=== PATIENT | male | born 1965 | race Caucasian/White ===

== ENCOUNTER → 2023-06-08 14:03 | Outpatient (CLI) | payer MEDICARE, SELFPAY ==
--- NOTE | ~2023-06-08 | XR_ITS ---
XR chest 2V DATE: 06/08/2023 14:42 INDICATION: Smoker. Hypertension. TECHNIQUE: 2 views COMPARISON: 08/31/2019 CT chest FINDINGS: Status post sternotomy and coronary artery bypass graft surgery. Status post right thoracotomy. Approximately 1 cm nodular density overlying the lateral right lower lung, corresponding to a similar sized nodule demonstrated on 08/31/2019 CT examination with lack of significant change in over 3 1/2 years is most suggestive of benign process. Mild discoid scarring or atelectasis at the left lung base. The lungs otherwise appear clear. No pleural effusion or pulmonary vascular congestion or pneumothorax. IMPRESSION: Stable approximately 1 cm right lower lobe pulmonary nodule No active cardiac pulmonary disease Status post sternotomy and coronary bypass graft surgery Status post right thoracotomy Reviewed, dictated and finalized at location B.
--- NOTE | ~2023-06-08 | XR_ITS ---
XR shoulder RT min 2V DATE: 06/08/2023 14:43 INDICATION: Right shoulder pain TECHNIQUE: 4 views COMPARISON: None FINDINGS: There is degenerative spurring and a prominent ossicle along the superior aspect of the rig ht acromioclavicular joint. No fracture or dislocation, periosteal reaction or bone destruction or abnormal soft tissue calcifica tion of the right shoulder is detected. Osteopenia. Status post sternotomy and coronary artery bypass graft surgery. IMPRESSION: Degenerative change at right acromioclavicular joint Reviewed, dictated and finalized at location B.
--- NOTE | ~2023-06-08 | XR_ITS ---
XR wrist RT min 3V DATE: 06/08/2023 14:44 INDICATION: Pain and swelling of right wrist TECHNIQUE: 4 views COMPARISON: None FINDINGS: Severe narrowing at the radial navicular joint. Is widening of the scapholunate joint. There is very prominent cystic change at the proximal half of the capitate bone. There is prominent joint space narrowing between the lunate and capitate bone. Moderate osteoarthritic change at the first carpometacarpal joint. No recent fracture or dislocation, periosteal reaction or bone destruction is detected. Prominent arterial calcification. IMPRESSION: Polyarticular osteoarthritis Prominent cystic change of the capitate bone Reviewed, dictated and finalized at location B.
--- NOTE | ~2023-06-08 | XR_ITS ---
XR hand LT min 3V DATE: 06/08/2023 14:44 INDICATION: Pain and swelling TECHNIQUE: 3 views COMPARISON: 06/08/2022 left wrist FINDINGS: Postoperative changes of the left wrist are again noted and described in the 06/06/2023 lef t wrist radiographic examination report. No recent fracture or dislocation, periosteal reaction or bone destruction is evident. There is osteoarthritic change at the radiocarpal joint and first carpometacarpal joint. Prominent arterial calcifications. Chondrocalcinosis of the triangular cartilage. IMPRESSION: Postoperative change of the wrist Polyarticular osteoarthritis Reviewed, dictated and finalized at location B.
--- NOTE | ~2023-06-08 | XR_ITS ---
EXAMINATION: XR lumbar spine 2-3V DATE: 06/08/2023 14:43 INDICATION: Low back pain. TECHNIQUE: 3 views of lumbar spine were obtained. COMPARISON: Chest CT 08/31/2019 FINDINGS: There are hypoplastic ribs at L1. There is 9 degrees levocurvature of lumbar spine. There i s 3 mm retrolisthesis of L1 on L2 and 3 mm anterolisthesis of L5 on S1. Vertebral body heights are no rmal. There is moderately decreased disc height at L1-L2, mildly decreased disc height at L3-L4, blossom rely decreased disc height at L4-L5, and mildly decreased disc height at L5-S1. There is multilevel f acet joint osteoarthritis, severe in lower lumbar spine. IMPRESSION: 1. Severe lumbar spondylosis. Reviewed, dictated and finalized at location E.
--- NOTE | ~2023-06-08 | XR_ITS ---
EXAMINATION: XR hand RT min 3V DATE: 06/08/2023 14:45 INDICATION: Right hand pain and swelling. TECHNIQUE: 3 views of right hand were obtained. COMPARISON: None. FINDINGS: Scapholunate dissociation is noted. There is an old healed fracture of diaphysis of fifth m etacarpal. There is severe osteoarthritis of lunate-capitate joint with large subchondral cyst. There is severe osteoarthritis of radioscaphoid joint. There is mild osteoarthritis of first carpometacarp al joint, triscaphe joint, second and third metacarpophalangeal joints, and most of the interphalange al joints. IMPRESSION: 1. 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 2. Polyarticular osteoarthritis. Reviewed, dictated and finalized at location E.
--- NOTE | ~2023-06-08 | XR_ITS ---
XR wrist LT min 3V DATE: 06/08/2023 14:43 INDICATION: Pain and swelling of left wrist TECHNIQUE: 4 views COMPARISON: None FINDINGS: There is postoperative change of the wrist with plate and screws along the dorsal aspect of the wrist bridging the triquetrum and proximal capitate bone and a screw extending from the radiocar pal joint into the capitate bone. There is resection of the navicular bone with some probable degener ative ossicles at the navicular bed. Mild there is patchy sclerosis and cystic change of the lunate b one and to a lesser extent the proximal capitate bone. There is some lucency around the screw extending from the radiocarpal joint into the proximal capitat e which may indicate loosening or less likely infection. There is osteoarthritic change at the first carpometacarpal joint. Prominent arterial calcification. IMPRESSION: Postoperative change of the left wrist including resection of the navicular bone, fusion of the triquetrum-capitate Possible loosening or less likely infection at a screw extending from the radiocarpal joint into the capitate bone No recent fracture or dislocation Reviewed, dictated and finalized at location B. IMPRESSION: Postoperative change of the left wrist including resection of the n avicular bone, fusion of the triquetrum-capitate Possible loosening or less likely infection at a screw extending from the radio carpal joint into the capitate bone No recent fracture or dislocation
== END ==
PROVIDERS: PCP Emergency Medicine; Visit Provider Emergency Medicine
DX: Z12.2 Encounter for screening for malignant neoplasm of respiratory organs (principal); Z87.891 Personal history of nicotine dependence; M79.642 Pain in left hand; M79.641 Pain in right hand; M43.06 Spondylolysis, lumbar region; R91.1 Solitary pulmonary nodule; Z95.1 Presence of aortocoronary bypass graft; Z98.890 Other specified postprocedural states; M19.042 Primary osteoarthritis, left hand; M19.041 Primary osteoarthritis, right hand
CPT/HCPCS: 71046; 72100; 73030; 73110; 73130

== ENCOUNTER 2023-06-10 10:03 | Inpatient (IN) | payer MEDICARE, SELFPAY ==
[2023-06-10] VITALS (20 sets, daily range): BP systolic 121–190; BP diastolic 71–99; PULSE 56–96; RESP 10–20; TEMP 36.1–36.5; O2SAT 93–100; BMI 24.5
--- NOTE | ~2023-06-10 | CT_ITS ---
EXAMINATION: CTA chest abdomen pelvis DATE: 06/10/2023 12:24 INDICATION: Right-sided chest pain and upper abdominal pain radiating to the back TECHNIQUE: Computed tomographic angiography (CTA) of the chest, abdomen, and pelvis was performed wit hout and with 100 mL Omnipaque-350 intravenous contrast. Volume-rendered 3D-reconstructions of the ao rta and large arteries were constructed by the technologist on a separate workstation. Automated expo sure control and iterative reconstruction technique were employed. The dose-length product was 715.4 mGy-cm. COMPARISON: None FINDINGS: Chest: 1.1 cm and 6 mm right lower lobe nodules with smooth margins which are unchanged since CT dated 2019 consistent with benign etiology such as old granulomatous disease or hamartoma. Additional uncha nged 3 mm pleural-based nodule at the lateral left lower lobe. Also unchanged is a small region of di scoid atelectasis/scarring at the posterior inferior lingula. There is persistent bronchial wall thic kening and mucous plugging of multiple bronchi in the bilateral lower lobes. No pneumonia, pulmonary edema, pleural effusion or pneumothorax. There are several small intrafissural lymph nodes along the right major and minor fissures. Arch size is normal. Atherosclerotic coronary artery ossifications an d change of prior median sternotomy and coronary artery bypass grafting. No pericardial effusion. Mil dly aneurysmal ascending thoracic aorta measuring up to 4.1 x 4.2 cm maximal transaxial dimensions. T he more distal thoracic aorta is normal in caliber. No aortic dissection. No pathologically enlarged thoracic lymphadenopathy. Mild thoracic spondylosis with chronic mild anterior wedging at T7-T9. Like ly thoracotomy defect involving the right seventh rib. Abdomen and pelvis: Liver, gallbladder, spleen and pancreas are normal. Unchanged mild nodular thickening of the bilatera l adrenal glands likely representing small adenomas. Again seen is bilateral hydroureteronephrosis, m ild to moderate on the right and severe on the left likely related to chronic outlet obstruction from the enlarged prostate. This also likely accounts for the diffuse mild wall thickening of the bladder with couple small diverticula at the dome of the bladder. There a few small regions of cortical scar ring at both kidneys likely sequela of prior infections or infarction. Bowels including the appendix are normal. There is mild scattered atherosclerotic plaque without hemodynamic significant stenosis a long the normal caliber abdominal aorta and extending into the bilateral iliac arteries. No aortic di ssection. No free intraperitoneal gas or fluid. No pathologically enlarged abdominal or pelvic lympha denopathy. Moderate to severe lumbar spondylosis. IMPRESSION: 1. Mildly aneurysmal ascending thoracic aorta measuring up to 4.2 cm maximal diameter. Remainder of t he aorta is normal in caliber and there is no aortic dissection. 2. Chronic bronchial wall thickening and scattered mucous plugging in the bilateral lower lobes sugge sting bronchitis without evident pneumonia. 3. Cardiomegaly with coronary artery disease and prior coronary artery bypass grafting. 4. Chronic bilateral hydroureteronephrosis which along with diffuse wall thickening of the distended bladder likely reflect changes of chronic outlet obstruction from the enlarged prostate. Reviewed, dictated and finalized at location A. IMPRESSION: 1. Mildly aneurysmal ascending thoracic aorta measuring up to 4.2 cm maximal di ameter. Remainder of the aorta is normal in caliber and there is no aortic diss ection. 2. Chronic bronchial wall thickening and scattered mucous plugging in the bilat eral lower lobes suggesting bronchitis without evident pneumonia. 3. Cardiomegaly with coronary artery disea
--- NOTE | ~2023-06-10 | XR_ITS ---
XR abdomen/kub 1V 06/11/2023 11:38 INDICATION: Abdomen pain TECHNIQUE: KUB COMPARISON: None FINDINGS: Bowel gas pattern is normal. Moderate colonic fecal loading. There is no evidence of free a ir, mass, organomegaly, ascites or obstruction. No abnormal calculi are seen. The bones appear inta ct. Moderate lumbar spondylosis with levoscoliosis. IMPRESSION: 1: No acute abdominal abnormality identified. Reviewed, dictated and finalized at location A.
[2023-06-10 10:51] LABS: Basophils Absolute Auto 0.1 K/mm3 (0.0-0.1); Basophils Percent Auto 0.7 % (0.2-1.2); Eosinophils Absolute Auto 0.3 K/mm3 (0-0.3); Eosinophils Percent Auto 3.1 % (0-4.4); Hematocrit 45.3 % (42.0-52.0); Hemoglobin 14.7 g/dL (14.0-18.0); Immature Granulocyte Absolute 0.03 K/mm3 (0.00-0.031); Immature Granulocyte Percent A 0.3 % (0-0.5); Lymphocytes Absolute Auto 1.62 K/mm3 (0.9-3.2); Mean Corpuscular HGB Conc 32.5 g/dl (32-36); Mean Corpuscular Hemoglobin 28.8 pg (26-34); Mean Corpuscular Volume 88.6 fl (80-100); Mean Platelet Volume 11.1 fl (7.4-10.4); Monocytes Absolute Auto 0.9 K/mm3 (0.1-0.6); Neutrophils Absolute Auto 6.1 K/mm3 (1.3-6.7); Neutrophils Percent Auto 67.9 % (45.5-73.1); Platelet Count Result 271 k/mm3 (150-375); Red Blood Count 5.11 M/mm3 (4.6-6.20)
[2023-06-10 10:57] LABS: Appearance Urine Cloudy (Clear); Bacteria Urine 4+ /hpf; Bilirubin Urine Negative (Negative); Blood Urine 1+ (Negative); Color Urine Yellow (Yellow); Glucose Urine UA 2+ mg/dL (Negative); Ketones Urine Negative (Negative); Leukocyte Esterase Ur 2+ LEU/UL (Negative); Nitrate Urine Negative (Negative); Non Pathogenic Casts 0-2; Protein Urine 1+ mg/dL (Negative); Specific Grav Ur 1.024 (1.001-1.035); Squamous Epithelial Cell Urine None seen /hpf (Few); Urobilinogen Urine 0.2 mg/dL (<2.0); WBC Urine >100 /hpf; pH Urine 8.5 (5.0-9.0)
[2023-06-10 10:59] LABS: Alanine Aminotransferase 19 U/L (6-50); Albumin Level 4.4 g/dL (3.5-5.1); Alkaline Phosphatase 99 U/L (38-126); Anion Gap 4 mmol/L (8-16); Aspartate Amino Transferase 26 U/L (17-59); Bilirubin,Total 0.5 mg/dL (0.2-1.3); Blood Urea Nitrogen 27 mg/dL (9-20); Calcium 9.2 mg/dL (8.4-10.2); Carbon Dioxide 31 mmol/L (22-30); Chloride 101 mmol/L (98-107); Estimated CRCL calculation 68 ml/min; Estimated Glomerular Filt Rate > 60; Glucose 303 mg/dL (65-110); Lipase 20 U/L (23-300); Potassium 4.5 mmol/L (3.4-5.0); Sodium 136 mmol/L (137-145)
[2023-06-10 10:59] LABS: Lactic Acid Reflex 1.1 mmol/L (0.7-2.0)
[2023-06-10 11:03] LABS: Add Urine Microscopic? YES
[2023-06-10 11:06] LABS: INR 0.9; Prothrombin Time 11.9 Seconds (11.1-14.7)
[2023-06-10 11:07] LABS: Partial Thromboplastin Time 28.9 SECONDS (22.3-36.8)
--- NOTE | 2023-06-10 11:59 | ECG_ITS ---
Measurements Intervals [place] Rate: 60 P: 17 SC: 207 QRS: -47 QRSD: 122 T: -50 QT: 402 QTc: 402 Interpretive Statements SINUS RHYTHM INFERIOR MYOCARDIAL INFARCTION [40+ ms Q WAVE AND/OR ST/T ABNORMALITY IN II/aVF], OF INDETERMINATE AGE NO PREVIOUS ECG AVAILABLE FOR COMPARISON Electronically Signed On 06-10-2023 13:36:48 CDT by Saw Bhakta MD
--- NOTE | 2023-06-10 12:00 | ED.ABDPAIN ---
HPI - Abdominal Pain General Chief Complaint: Abdominal Pain Stated Complaint: abdominal pain Time Seen by Provider: 06/10/23 10:27 History of Present Illness HPI narrative: 57-year-old male presented to the emergency department for evaluation of intense abdominal pain for the last 3 to 7 days. Patient states he had this pain approximately a year ago and was supposed to have surgery for an unknown reason but states surgery never occurred. Patient is unsure of what the etiology of that pain was. Patient describes nausea without vomiting. Patient reports decreased bowel movements but did have a bowel movement today. Patient has have history of diabetes, high cholesterol and hypertension. Patient denies any prior diagnosis of aneurysm or aortic dissection. Related Data Allergies Allergy/AdvReac Type Severity Reaction Status Date / Time No Known Allergies Allergy Verified 06/10/23 10:46 Review of Systems Review of Systems: All systems reviewed & are unremarkable except as noted in HPI and below PMFSH Family History Family History Grandparent Family history of osteoporosis Diabetes mellitus Mother Family history of osteoporosis Family history of mental disorder Family history of arthritis Family history of malignant neoplasm Social History Social History Smoking packs per day: 1 Smoking cigarettes per day: 20.0 Smoking status: Former smoker Tobacco type: cigarettes Alcohol intake: former Substance use: former Substance use type: marijuana Last use: Lack of Transportation: No Lack of Food: Never True Current Housing: I Have Housing Concerned About Future Housing: No Difficulty Paying Gas/Electric Bills: No Difficulty Paying for Meds: No Currently Unemployed: No Education: High School Diploma/GED Difficulty w/ Childcare or Family Care: No Spiritual care concerns: No Exam Narrative: APPEARANCE: Well appearing, no pain, no distress, well-nourished. HEAD: normocephalic, atraumatic. EYES: PERRLA/EOMI, conjunctivae clear. NOSE: Normal no drainage NECK: Supple. No adenopathy, no masses. RESPIRATORY: Airway patent, respirations nonlabored. Clear to auscultation bilaterally, no rales, rhonchi, wheezing. CARDIOVASCULAR: Regular rate and rhythm without murmurs rubs or gallops. ABDOMINAL: Abdomen is very tender to palpation on initial exam MUSCULOSKELETAL: Moves all extremities. Strength/ROM intact, No edema, No calf tenderness. NEURO: Alert. Cranial nerves II through XII intact. SKIN: Warm, dry. Normal Color Course Course Emergency Course: 57-year-old male present emergency department for evaluation of increased abdominal pain. Upon arrival patient was having significant abdominal pain was tender to palpation. CT chest abdomen pelvis was ordered and did show a mildly anuretic thoracic aorta 4.[address] scan also showed chronic urinary obstruction and UA showed evidence of urinary tract infection. Maurice catheter was placed and patient drained greater than 700 mL of retained urine. On reexamination patient states he does feel improved. Patient has no abdominal tenderness to palpation. Patient does still have some chest wall tenderness to palpation that he states has been ongoing for the last few months. I discussed case with hospitalist and patient was accepted for admission. Patient is afebrile with no leukocytosis and a stable hemoglobin. No significant abnormalities on the patient's CMP. UA is concerning for infection. Patient was started on Rocephin in the ED. Patient was updated the results of the work-up and patient was comfortable with the plan for admission. Vital Signs Vital signs: Vital Signs Temperature 97.0 F L 06/10/23 10:05 Pulse Rate 67 06/10/23 10:05 Respiratory Rate 20 06/10/23 10:05 Blood Pressure 155/95 H 06/10/23 10:05 Pulse Oximetry 98 06/10/23 10:05 Oxygen Delivery Ro
[2023-06-10] MEDS: HYDROmorphone HCL INJ (*CRX) 1 MG/ML SYR IV PUSH (12:08)
[2023-06-10] MEDS: ONDANSETRON INJ 4 MG/2 ML VIAL (12:15)
[2023-06-10] MEDS: HYDROmorphone HCL INJ (*CRX) 1 MG/ML SYR 0.5 MG IV PUSH ×3 (13:49→22:01)
[2023-06-10] MEDS: BELLADONNA ALK/PHENOB ELIX 10 ML, MAG HYDROX/ALUMINUM HYD/SIMETH 30 ML, LIDOCAINE HCL 2... PO (14:06)
[2023-06-10] MEDS: PANTOPRAZOLE SODIUM IV 40 MG VIAL IV PUSH (14:07)
[2023-06-10] MEDS: ONDANSETRON INJ 4 MG/2 ML VIAL IV PUSH (17:46)
--- NOTE | 2023-06-10 18:10 | ADMGEN ---
This patient, Rohan Roca, was admitted to Medical Room 341-01. Patient/family oriented to hospital policies and general routines including ID bracelet, bed and alarms, visiting hours, pain management, procedures, bathroom and other care routines, personal items, smoking policy, room service/diet, and visiting hours. Information on how to activate the Rapid Response Team has been discussed. Patient/Family are encouraged to report perceived risks to care and to ask questions if they do not understand what they are told or what they should do.
[2023-06-10 22:06] LABS: Glucose Point of Care 280 mg/dl (65-105)
--- NOTE | 2023-06-10 23:28 | PM.IMHP ---
H&P: HPI History of Present Illness Date/Time: 06/10/23 23:28 Chief Complaint: abdominal pain Narrative: THIS IS A 57-YEAR-OLD MALE WITH PAST MEDICAL HISTORY NONSIGNIFICANT. PATIENT PRESENTS TO THE EMERGENCY ROOM DUE TO EXCRUCIATING ABDOMINAL PAIN HAD BEEN IN HIS USUAL STATE OF HEALTH PRIOR TO THESE THIS STARTED IN THE MORNING HE WAS UNABLE TO VOID URINE IN THE EMERGENCY ROOM PATIENT WAS FOUND TO HAVE URINARY RETENTION A NICOLE CATHETER WAS PLACED AND A URINALYSIS SHOWED NUMEROUS WBCS PRESENT IN THE URINE. PATIENT HAS BEEN ADMITTED FOR FURTHER EVALUATION MANAGEMENT AND TREAT EXAMINATION: CTA chest abdomen pelvis DATE: 06/10/2023 12:24 INDICATION: Right-sided chest pain and upper abdominal pain radiating to the back TECHNIQUE: Computed tomographic angiography (CTA) of the chest, abdomen, and pelvis was performed without and with 100 mL Omnipaque-350 intravenous contrast. Volume-rendered 3D-reconstructions of the aorta and large arteries were constructed by the technologist on a separate workstation. Automated exposure control and iterative reconstruction technique were employed. The dose-length product was 715.4 mGy-cm. COMPARISON: None FINDINGS: Chest: 1.1 cm and 6 mm right lower lobe nodules with smooth margins which are unchanged since CT dated 08/31/2019 consistent with benign etiology such as old granulomatous disease or hamartoma. Additional unchanged 3 mm pleural-based nodule at the lateral left lower lobe. Also unchanged is a small region of discoid atelectasis/scarring at the posterior inferior lingula. There is persistent bronchial wall thickening and mucous plugging of multiple bronchi in the bilateral lower lobes. No pneumonia, pulmonary edema, pleural effusion or pneumothorax. There are several small intrafissural lymph nodes along the right major and minor fissures. Arch size is normal. Atherosclerotic coronary artery ossifications and change of prior median sternotomy and coronary artery bypass grafting. No pericardial effusion. Mildly aneurysmal ascending thoracic aorta measuring up to 4.1 x 4.2 cm maximal transaxial dimensions. The more distal thoracic aorta is normal in caliber. No aortic dissection. No pathologically enlarged thoracic lymphadenopathy. Mild thoracic spondylosis with chronic mild anterior wedging at T7-T9. Likely thoracotomy defect involving the right seventh rib. Abdomen and pelvis: Liver, gallbladder, spleen and pancreas are normal. Unchanged mild nodular thickening of the bilateral adrenal glands likely representing small adenomas. Again seen is bilateral hydroureteronephrosis, mild to moderate on the right and severe on the left likely related to chronic outlet obstruction from the enlarged prostate. This also likely accounts for the diffuse mild wall thickening of the bladder with couple small diverticula at the dome of the bladder. There a few small regions of cortical scarring at both kidneys likely sequela of prior infections or infarction. Bowels including the appendix are normal. There is mild scattered atherosclerotic plaque without hemodynamic significant stenosis along the normal caliber abdominal aorta and extending into the bilateral iliac arteries. No aortic dissection. No free intraperitoneal gas or fluid. No pathologically enlarged abdominal or pelvic lymphadenopathy. Moderate to severe lumbar spondylosis. IMPRESSION: 1. Mildly aneurysmal ascending thoracic aorta measuring up to 4.2 cm maximal diameter. Remainder of the aorta is normal in caliber and there is no aortic dissection. 2. Chronic bronchial wall thickening and scattered mucous plugging in the bilateral lower lobes suggesting bronchitis without evident pneumonia. 3. Cardiomegaly with coronary artery disease and prior coronary artery bypass grafting. 4. Chronic bilateral hydroureteronephrosis which along with diffuse wall thickening of the distended bladder likely reflect changes of chronic outlet obstruction from the enlarged prostate. Review o
[2023-06-11] MEDS: HYDROmorphone HCL INJ (*CRX) 1 MG/ML SYR 0.5 MG IV PUSH ×3 (01:48→11:55)
[2023-06-11 04:36] VITALS: BP 148/81; PULSE 74; RESP 16; TEMP 36.2; O2SAT 98
[2023-06-11 06:21] LABS: Basophils Absolute Auto 0.1 K/mm3 (0.0-0.1); Basophils Percent Auto 0.6 % (0.2-1.2); Eosinophils Absolute Auto 0.1 K/mm3 (0-0.3); Eosinophils Percent Auto 1.5 % (0-4.4); Hematocrit 43.7 % (42.0-52.0); Immature Granulocyte Absolute 0.01 K/mm3 (0.00-0.031); Immature Granulocyte Percent A 0.1 % (0-0.5); Lymphocytes Percent Auto 18.3 % (18.3-44.2); Mean Corpuscular Hemoglobin 28.6 pg (26-34); Mean Corpuscular Volume 89.4 fl (80-100); Monocytes Absolute Auto 0.8 K/mm3 (0.1-0.6); Monocytes Percent Auto 9.5 % (2.6-8.5); Neutrophils Absolute Auto 5.8 K/mm3 (1.3-6.7); Platelet Count Result 241 k/mm3 (150-375); Red Blood Count 4.89 M/mm3 (4.6-6.20); Red Cell Distribution Width 12.8 % (11.5-14.5); White Blood Count 8.2 K/mm3 (4.5-10.0)
[2023-06-11 06:36] LABS: Anion Gap 4 mmol/L (8-16); Blood Urea Nitrogen 20 mg/dL (9-20); Calcium 8.9 mg/dL (8.4-10.2); Carbon Dioxide 30 mmol/L (22-30); Chloride 98 mmol/L (98-107); Estimated CRCL calculation 84 ml/min; Estimated Glomerular Filt Rate > 60; Glucose 342 mg/dL (65-110); Sodium 132 mmol/L (137-145)
[2023-06-11] MEDS: ONDANSETRON INJ 4 MG/2 ML VIAL IV PUSH ×2 (06:37→14:27)
[2023-06-11] MEDS: PARoxetine 10 MG TABLET PO (08:42)
[2023-06-11] MEDS: TAMSULOSIN HCL 0.4 MG CAPSULE PO (08:42)
[2023-06-11] MEDS: ENOXAPARIN 40 MG/0.4 ML SYRINGE SUB-Q (08:42)
[2023-06-11] MEDS: PANTOPRAZOLE SODIUM IV 40 MG VIAL IV PUSH (08:42)
[2023-06-11] MEDS: ACETAMINOPHEN 500 MG TABLET 1000 MG PO (08:50)
--- NOTE | 2023-06-11 09:17 | PM.IMPN ---
Progress Note: A&P Assessment and Plan (1) Acute UTI: Code(s): N39.0 - Urinary tract infection, site not specified Status: Acute Assessment and Plan: UA concerning for UTI. Also seen changes with hydronephrosis and cystitis on CT Maurice catheter was placed with 700 mils of urine return Started on Rocephin Admitted to medical floor Encourage fluid intake started on flomax and proscar will attempt void trial tomorrow (2) Abdominal pain: Code(s): R10.9 - Unspecified abdominal pain Status: Acute Assessment and Plan: Suspected to have been related to bladder distension Initially pain had improved after bladder decompression. Called this morning by bedside nurse with patient complaints of pain. When I saw him he point to epigastric pain and a soft outpouching to his epigastrium. No hernia was present on CT. He also has right chest and should pain. He does say that he fell 1 week ago. Lidoderm patch, tylenol, ibuprofen, and norco for severe pain (3) Acute urinary retention: Code(s): R33.8 - Other retention of urine Status: Acute Assessment and Plan: Maurice catheter placed in the ED Bladder outlet obstruction related to enlarged prostate Will start on tamulosin and Proscar. Pharmacy review shows he was prescribed these in July of 2022 but it does not appear that he is taking them anymore. Add on PSA Will need outpatient follow-up with Urology (4) High blood sugar: Code(s): R73.9 - Hyperglycemia, unspecified Status: Acute Assessment and Plan: Blood glucose has been in the 300s Medical record shows history of diabetes but patient does appear to be on any therapies. Pharmacy review shows that in July of 2020 to he was taking metformin and pioglitazone A1C 10.2% A.c. HS Accu-Cheks with low-dose sliding scale Diabetic diet Added Lantus 11 units Will add metformin and pioglitazone back at d/c (5) HTN (hypertension): Code(s): I10 - Essential (primary) hypertension Status: Acute Assessment and Plan: Blood pressure is consistently 140s to 150s SBP Not currently taking any blood pressure medications Monitor blood pressures May need to start antihypertensives Plan Feeding: Diabetic Analgesia: Tylenol Thromboembolic prophylaxis: Lovenox Ulcer prophylaxis: Ppi Glycemic control: A.c. HS with sliding scale low-dose insulin Bowel regimen: MiraLax and senna Plus Lines: PIV Antibiotics: Rocephin Disposition: Home Subjective Date/time seen: 06/11/23 1345 Interval history: This is a 57-year-old male with a past medical history of diabetes, high cholesterol, CAD with prior CABG, anxiety/depression, and hypertension. He presented to the ER on 06/10 with complaints of intense abdominal pain for last 3 7 days. He reports that he had similar pain approximately 1 year ago and was supposed to have a surgery for unknown reason at surgery never occurred. He does not remember what the etiology of the pain was. He has nausea without vomiting and reports decreased bowel movements. CT of chest abdomen and pelvis showed chronic bilateral hydroureteronephrosis with diffuse wall thickening of the distended bladder reflecting changes of chronic outlet obstruction from enlarged prostate. Maurice catheter was placed and 700 mils of urine was returned. Most of patient's abdominal pain subsided. Incidental findings on CT include a mild aneurysmal ascending thoracic aorta measuring up to 4.2 cm without dissection, chronic bronchial wall thickening and scattered mucous plugging suggesting bronchitis without pneumonia, cardiomegaly with CAD and prior CABG. His blood work was essentially unremarkable besides hyperglycemia. His her urinalysis was positive for UTI. He was started on Rocephin and admitted to the medical floor. 06/11-Seen at the beside this afternoon resting in bed. He reports pain on his right chest wall, shoulder,
[2023-06-11 10:11] LABS: Hemoglobin A1C 10.2 % (<5.7)
[2023-06-11] MEDS: FINASTERIDE 5 MG TABLET PO (11:55)
[2023-06-11] MEDS: polyethylene glycoL 3350 17 GM POWD.PACK PO (11:55)
[2023-06-11 11:59] LABS: Cholesterol 186 mg/dL (0-200); HDL Direct 40 mg/dL; Triglycerides 182 mg/dL (<150)
[2023-06-11 12:10] LABS: LDL Cholesterol Direct 109 mg/dL
[2023-06-11 12:27] LABS: Glucose Point of Care 297 mg/dl (65-105)
[2023-06-11] MEDS: INSULIN ASPART (*BKC) 100 UNITS/ML SUB-Q ×3 (12:34→20:22)
[2023-06-11 12:37] LABS: Prostate Specific Antigen 7.2 ng/mL (< OR = 4.0)
[2023-06-11] MEDS: BISACODYL 10 MG SUPPOSITORY RECTAL (12:38)
[2023-06-11 14:00] VITALS: BP 163/93; PULSE 69; RESP 20; TEMP 37.2; O2SAT 99
[2023-06-11 16:14] VITALS: BP 150/80
[2023-06-11 16:23] VITALS: BP 152/85
[2023-06-11 17:28] LABS: Glucose Point of Care 272 mg/dl (65-105)
[2023-06-11] MEDS: LIDOCAINE 5% PATCH 2 PATCH TRANSDERM (17:55)
[2023-06-11] MEDS: amLODIPine BESYLATE 5 MG TABLET PO (17:55)
[2023-06-11] MEDS: ACETAMINOPHEN 500 MG TABLET PO (17:57)
[2023-06-11 20:17] VITALS: BP 126/65; PULSE 73; RESP 16; TEMP 36.6; O2SAT 94
[2023-06-11] MEDS: SENNA/DOCUSATE SODIUM TABLET 1 TAB PO (20:19)
[2023-06-11] MEDS: INSULIN GLARGINE (*BKC) 100 UNITS/ML 11 UNITS SUB-Q (20:23)
[2023-06-12 00:01] LABS: Glucose Point of Care 348 mg/dl (65-105)
[2023-06-12] MEDS: traZODone HCL 50 MG TABLET PO (02:04)
[2023-06-12 04:23] VITALS: BP 121/67; PULSE 76; RESP 16; TEMP 36.2; O2SAT 95
[2023-06-12 05:48] LABS: Basophils Absolute Auto 0.1 K/mm3 (0.0-0.1); Basophils Percent Auto 0.7 % (0.2-1.2); Eosinophils Absolute Auto 0.2 K/mm3 (0-0.3); Eosinophils Percent Auto 2.3 % (0-4.4); Hematocrit 41.2 % (42.0-52.0); Hemoglobin 13.6 g/dL (14.0-18.0); Immature Granulocyte Absolute 0.02 K/mm3 (0.00-0.031); Immature Granulocyte Percent A 0.3 % (0-0.5); Lymphocytes Absolute Auto 1.69 K/mm3 (0.9-3.2); Lymphocytes Percent Auto 22.4 % (18.3-44.2); Mean Corpuscular Hemoglobin 28.8 pg (26-34); Mean Corpuscular Volume 87.1 fl (80-100); Mean Platelet Volume 11.2 fl (7.4-10.4); Monocytes Absolute Auto 0.8 K/mm3 (0.1-0.6); Monocytes Percent Auto 10.6 % (2.6-8.5); Neutrophils Absolute Auto 4.8 K/mm3 (1.3-6.7); Neutrophils Percent Auto 63.7 % (45.5-73.1); Platelet Count Result 247 k/mm3 (150-375); Red Blood Count 4.73 M/mm3 (4.6-6.20); Red Cell Distribution Width 12.4 % (11.5-14.5); White Blood Count 7.5 K/mm3 (4.5-10.0)
[2023-06-12 06:08] LABS: Alanine Aminotransferase 14 U/L (6-50); Albumin Level 3.5 g/dL (3.5-5.1); Alkaline Phosphatase 67 U/L (38-126); Anion Gap 5 mmol/L (8-16); Aspartate Amino Transferase 21 U/L (17-59); Bilirubin,Total 0.6 mg/dL (0.2-1.3); Blood Urea Nitrogen 20 mg/dL (9-20); Calcium 8.7 mg/dL (8.4-10.2); Carbon Dioxide 28 mmol/L (22-30); Chloride 101 mmol/L (98-107); Estimated CRCL calculation 75 ml/min; Estimated Glomerular Filt Rate > 60; Glucose 247 mg/dL (65-110); Potassium 3.9 mmol/L (3.4-5.0); Sodium 134 mmol/L (137-145)
--- NOTE | 2023-06-12 08:05 | PM.IMPN ---
Progress Note: A&P Assessment and Plan (1) Acute UTI: Code(s): N39.0 - Urinary tract infection, site not specified Status: Acute Assessment and Plan: UA concerning for UTI. Also seen changes with hydronephrosis and cystitis on CT Harmon catheter was placed with 700 mils of urine return Started on Rocephin Urine culture is inconclusive Admitted to medical floor Encourage fluid intake started on flomax and proscar Remove harmon, PVRs (2) Abdominal pain: Code(s): R10.9 - Unspecified abdominal pain Status: Acute Assessment and Plan: Suspected to have been related to bladder distension Initially pain had improved after bladder decompression. Called this morning by bedside nurse with patient complaints of pain. When I saw him he point to epigastric pain and a soft outpouching to his epigastrium. No hernia was present on CT. He also has right chest and should pain. He does say that he fell 1 week ago. Lidoderm patch, tylenol, ibuprofen, and norco for severe pain (3) Acute urinary retention: Code(s): R33.8 - Other retention of urine Status: Acute Assessment and Plan: Harmon catheter placed in the ED Bladder outlet obstruction related to enlarged prostate Will start on tamulosin and Proscar. Pharmacy review shows he was prescribed these in July of 2022 but it does not appear that he is taking them anymore. Add on PSA elevated at 7.2 Will need outpatient follow-up with Urology (4) High blood sugar: Code(s): R73.9 - Hyperglycemia, unspecified Status: Acute Assessment and Plan: Blood glucose has been in the 300s Medical record shows history of diabetes but patient does appear to be on any therapies. Pharmacy review shows that in July of 2020 to he was taking metformin and pioglitazone A1C 10.2% A.c. HS Accu-Cheks with low-dose sliding scale Diabetic diet Added Lantus 11 units Add on Actos today 06/12 Restart metformin at MT. (5) HTN (hypertension): Code(s): I10 - Essential (primary) hypertension Status: Acute Assessment and Plan: Blood pressure is consistently 140s to 150s SBP Not currently taking any blood pressure medications Monitor blood pressures May need to start antihypertensives Added amlodipine 5 mg and blood pressures are much improved. SBP 120's/70's Plan Feeding: Diabetic Analgesia: Tylenol Thromboembolic prophylaxis: Lovenox Ulcer prophylaxis: Ppi Glycemic control: A.c. HS with sliding scale low-dose insulin Bowel regimen: MiraLax and senna Plus Lines: PIV Antibiotics: Rocephin Disposition: Home Subjective Date/time seen: 06/12/23 08:05 Interval history: This is a 57-year-old male with a past medical history of diabetes, high cholesterol, CAD with prior CABG, anxiety/depression, and hypertension. He presented to the ER on 06/10 with complaints of intense abdominal pain for last 3 7 days. He reports that he had similar pain approximately 1 year ago and was supposed to have a surgery for unknown reason at surgery never occurred. He does not remember what the etiology of the pain was. He has nausea without vomiting and reports decreased bowel movements. CT of chest abdomen and pelvis showed chronic bilateral hydroureteronephrosis with diffuse wall thickening of the distended bladder reflecting changes of chronic outlet obstruction from enlarged prostate. Harmon catheter was placed and 700 mils of urine was returned. Most of patient's abdominal pain subsided. Incidental findings on CT include a mild aneurysmal ascending thoracic aorta measuring up to 4.2 cm without dissection, chronic bronchial wall thickening and scattered mucous plugging suggesting bronchitis without pneumonia, cardiomegaly with CAD and prior CABG. His blood work was essentially unremarkable besides hyperglycemia. His her urinalysis was positive for UTI. He was started on Rocephin and admitted to the
[2023-06-12 08:17] LABS: Glucose Point of Care 264 mg/dl (65-105)
[2023-06-12 08:37] VITALS: BP 125/85; PULSE 78; RESP 16; O2SAT 99
[2023-06-12] MEDS: INSULIN ASPART (*BKC) 100 UNITS/ML SUB-Q ×2 (08:38→12:00)
[2023-06-12] MEDS: amLODIPine BESYLATE 5 MG TABLET PO (08:38)
[2023-06-12] MEDS: AMOXICILLIN/CLAVULANATE K 875-125 MG TAB 1 TABLET PO (08:38)
[2023-06-12] MEDS: PARoxetine 10 MG TABLET PO (08:38)
[2023-06-12] MEDS: FINASTERIDE 5 MG TABLET PO (08:39)
[2023-06-12] MEDS: TAMSULOSIN HCL 0.4 MG CAPSULE PO (08:39)
[2023-06-12] MEDS: ENOXAPARIN 40 MG/0.4 ML SYRINGE SUB-Q (08:39)
[2023-06-12] MEDS: PIOGLITAZONE HCL 30 MG TABLET PO (08:39)
[2023-06-12] MEDS: polyethylene glycoL 3350 17 GM POWD.PACK PO (08:39)
[2023-06-12] MEDS: PANTOPRAZOLE SODIUM IV 40 MG VIAL IV PUSH (08:39)
[2023-06-12] MEDS: ACETAMINOPHEN 500 MG TABLET PO (08:40)
--- NOTE | 2023-06-12 10:41 | PM.DS ---
DS: Admitting Diagnosis Discharge Date 06/12 Admitting Diagnosis abdominal pain, nausea, vomiting DS: Discharge Diagnosis Discharge Diagnosis (1) Acute UTI: Code(s): N39.0 - Urinary tract infection, site not specified Status: Acute (2) Abdominal pain: Code(s): R10.9 - Unspecified abdominal pain Status: Acute (3) Acute urinary retention: Code(s): R33.8 - Other retention of urine Status: Acute (4) High blood sugar: Code(s): R73.9 - Hyperglycemia, unspecified Status: Acute (5) HTN (hypertension): Code(s): I10 - Essential (primary) hypertension Status: Acute Plan Assessment and Plan (1) Acute UTI: ?Code(s): N39.0 - Urinary tract infection, site not specified ?Status:?Acute ?Assessment and Plan: UA concerning for UTI.? Also seen changes with hydronephrosis and cystitis on CT Maurice catheter was placed with 700 mils of urine return Started on Rocephin Admitted to medical floor Encourage fluid intake started on flomax and proscar will attempt void trial tomorrow(2) Abdominal pain: ?Code(s): R10.9 - Unspecified abdominal pain ?Status:?Acute ?Assessment and Plan: Suspected to have been related to bladder distension Initially pain had improved after bladder decompression. Called this morning by bedside nurse with patient complaints of pain. When I saw him he point to epigastric pain and a soft outpouching to his epigastrium. No hernia was present on CT. He also has right chest and should pain. He does say that he fell 1 week ago. Lidoderm patch, tylenol, ibuprofen, and norco for severe pain (3) Acute urinary retention: ?Code(s): R33.8 - Other retention of urine ?Status:?Acute ?Assessment and Plan: Maurice catheter placed in the ED Bladder outlet obstruction related to enlarged prostate Will start on tamulosin and Proscar.? Pharmacy review shows he was prescribed these in July of 2022 but it does not appear that he is taking them anymore. Add on PSA Will need outpatient follow-up with Urology (4) High blood sugar: ?Code(s): R73.9 - Hyperglycemia, unspecified ?Status:?Acute ?Assessment and Plan: Blood glucose has been in the 300s Medical record shows history of diabetes but patient does appear to be on any therapies.? Pharmacy review shows that in July of 2020 to he was taking metformin and pioglitazone A1C 10.2% A.c. HS Accu-Cheks with low-dose sliding scale Diabetic diet Added Lantus 11 units Will add metformin and pioglitazone back at d/c(5) HTN (hypertension): ?Code(s): I10 - Essential (primary) hypertension ?Status:?Acute ?Assessment and Plan: Blood pressure is consistently 140s to 150s SBP Not currently taking any blood pressure medications Monitor blood pressures May need to start antihypertensives Plan Feeding:? Diabetic Analgesia:? Tylenol Thromboembolic prophylaxis:? Lovenox Ulcer prophylaxis:? Ppi Glycemic control:? A.c. HS with sliding scale low-dose insulin Bowel regimen:? MiraLax and senna Plus Lines:? PIV Antibiotics:? Rocephin Disposition:? Home DS: Summary Hospital Course Hospital Course: This is a 57-year-old male with a past medical history of diabetes, high cholesterol, CAD with prior CABG, anxiety/depression, and hypertension. He presented to the ER on 06/10 with complaints of intense abdominal pain for last 3 7 days. He reports that he had similar pain approximately 1 year ago and was supposed to have a surgery for unknown reason at surgery never occurred. He does not remember what the etiology of the pain was. He has nausea without vomiting and reports decreased bowel movements. CT of chest abdomen and pelvis showed chronic bilateral hydroureteronephrosis with diffuse wall thickening of the distended bladder reflecting changes of chronic outlet obstruction from enlarged prostate. Maurice catheter was placed and 700 mils of urine was returned.
[2023-06-12 11:41] LABS: Glucose Point of Care 255 mg/dl (65-105)
== END 2023-06-12 14:25 | disposition home or self-care (01) | DRG 690 ==
LOC: ANHED 15:00 → ANH3MED 17:22
PROVIDERS: Internal Medicine; Admitting Provider Student in an Organized Health Care Education/Training Program; Emergency Provider Emergency Medicine; PCP Emergency Medicine; Visit Provider Nurse Practitioner Acute Care
DX: N39.0 Urinary tract infection, site not specified (principal); N40.1 Benign prostatic hyperplasia with lower urinary tract symptoms; N13.8 Other obstructive and reflux uropathy; R33.8 Other retention of urine; I25.10 Atherosclerotic heart disease of native coronary artery without angina pectoris; I10 Essential (primary) hypertension; E11.9 Type 2 diabetes mellitus without complications; E78.00 Pure hypercholesterolemia, unspecified; M25.511 Pain in right shoulder; R07.89 Other chest pain; F41.9 Anxiety disorder, unspecified; F32.A Depression, unspecified; Z87.891 Personal history of nicotine dependence; Z91.81 History of falling; Z95.1 Presence of aortocoronary bypass graft
CPT/HCPCS: 36415; 71046; 71275; 72100; 73030; 73110; 73130; 74018; 74174; 80048; 80053; 80061; 81001; 82948; 83036; 83605; 83690; 84153; 85025; 85610; 85730; 87086; 87088; 93005; 96365; 96372; 96375; 96376; 99285; A9270; C9113; G0378; J0696; J1170; J1650; J1815; J2405; Q9967